=== PATIENT | female | born 1960 | race Hispanic/Latino ===

== ENCOUNTER 2016-12-30 08:12 | Outpatient (CLI) | payer MEDICARE, MEDICAID ==
[2016-12-30] MEDS ORDERED: LEXISCAN IV ONE ×2 (09:00→09:11)
[2016-12-30 12:56] VITALS: BP 141/65
== END 2016-12-30 08:13 | disposition home or self-care (01) ==
LOC: ECHO 08:12
PROVIDERS: ATTEND Internal Medicine Cardiovascular Disease
DX: R06.02 Shortness of breath (principal); R94.31 Abnormal electrocardiogram [ECG] [EKG]; R09.89 Other specified symptoms and signs involving the circulatory and respiratory systems
CPT/HCPCS: 78452; 93017; A9502; J2785